=== PATIENT | female | born 1950 | race Caucasian/White ===

== ENCOUNTER 2023-07-22 09:52 | Emergency (ER) | payer MEDICARE, SELFPAY ==
[2023-07-22] VITALS (16 sets, daily range): BP systolic 83–117; BP diastolic 39–58; PULSE 66–77; RESP 12–32; TEMP 36.9; O2SAT 97–100; BMI 29.0
[2023-07-22 10:15] LABS: Add Manual Diff / Slide Review NO; Basophils Absolute Auto 100 /uL (0-100); Basophils Percent Auto 0.7 % (0-2); Eosinophils Absolute Auto 200 /uL (0-450); Eosinophils Percent Auto 1.6 % (2-4); Hematocrit 31.7 % (36-46); Hemoglobin 10.6 g/dL (12.0-16.0); Lymphocytes Absolute Auto 1100 /uL (1100-4500); Lymphocytes Percent Auto 9.8 % (25-40); Mean Corpuscular HGB Conc 33.5 % (30-36); Mean Corpuscular Hemoglobin 32.3 PG (26-34); Mean Corpuscular Volume 96.3 fL (80-100); Monocytes Absolute Auto 500 /uL (0-900); Monocytes Percent Auto 4.9 % (3-14); Neutrophils Absolute Auto 9100 /uL (1500-7000); Platelet Count 222 X10^3/uL (150-400); Red Blood Cell Count 3.29 X10^6/uL (4.0-5.2); Red Cell Distribution Width 13.2 % (11.6-14.8); White Blood Cell Count 10.9 X10^3/uL (4.5-11.0)
[2023-07-22] MEDS: SODIUM CHLORIDE 0.9% 1,000 ML 1000 ML IV ×2 (10:15→10:54)
--- NOTE | 2023-07-22 10:19 | PC.NURSE ---
Pt hypotensive 83/39. Placed pt in trendelenberg. BP now 91/47. Pt a&ox4
--- NOTE | 2023-07-22 10:20 | ED_ITS ---
HPI - Skin/Abscess/Foreign Bdy General Chief complaint: Skin/Abscess/Foreign Body Stated complaint: Rash in groin since ,worse,hypotension Time Seen by Provider: 07/22/23 09:54 Source: patient and EMS Mode of arrival: EMS History of Present Illness HPI narrative: 73-year-old female presents by EMS from nursing facility for rash. Patient has a rash on her body, starting in her groin and underneath her breasts that has gradually worsened. Patient is on daily fluconazole and terbinafine, however because she was not getting better facility called 911 for evaluation. Incidentally patient was noted to be hypotensive by EMS EN route, however she denied complaints. Related Data Allergies Allergy/AdvReac Type Severity Reaction Status Date / Time No Known Drug Allergies Allergy Verified 07/22/23 10:52 Review of Systems Review of Systems Narrative: Negative except as noted above Patient History Social History Smoking Status: Never smoker Smoking Status: Never smoker alcohol intake frequency: 0-2 drinks per day Substance Use Type: does not use Exam Initial Vital Signs Initial Vital Signs: Vital Signs Temperature 98.5 F 07/22/23 09:56 Pulse Rate 77 07/22/23 09:56 Respiratory Rate 28 H 07/22/23 09:56 Blood Pressure 94/51 L 07/22/23 09:56 Pulse Oximetry 99 07/22/23 09:56 Oxygen Delivery Method Room Air 07/22/23 09:56 Const: Awake, alert, no acute distress, nontoxic appearing Eyes: PERRL, EOMI, conjunctiva normal ENT: Atraumatic, dentition normal, mucous membranes moist Cardiac: regular rate, regular rhythm RESP: unlabored, clear bilaterally, no wheezing GI: Atraumatic, soft, nontender, nondistended, no rebound, no guarding MSK: Missing LUE above elbow Skin: extensive fungal-appearing rash under breasts, in groin, and on legs Neuro: AO x3, CN II-XII grossly intact, moves all extremities Psych: affect normal, mood normal, not suicidal, not homicidal Course Orders Ordered: ED Orders 07/22/23 10:10 CBC Auto Diff [Complete Blood Count AUTO DIFF] Stat CMP [Comprehensive Metabolic Panel] Stat CRP [C-Reactive Protein Quant] Stat Erythrocyte Sedimentation Rate Stat Lactate (Lactic Acid) Stat Procalcitonin Stat 07/22/23 10:11 EKG-12 Lead Stat 07/22/23 10:58 Blood Culture Stat 07/22/23 11:30 UA Complete [Urinalysis and Microscopic] Stat Discontinued Medications Sodium Chloride (Normal Saline 0.9%) 1,000 mls @ 1,000 mls/hr IV BOLUS ONE Stop: 07/22/23 11:10 Last Infusion: 07/22/23 10:53 Dose: Infused Documented By: Admin: 07/22/23 10:15 Dose: 1,000 mls/hr Documented By: BRAXTON Sodium Chloride (Normal Saline 0.9%) 1,000 mls @ 1,000 mls/hr IV BOLUS ONE Stop: 07/22/23 11:40 Last Infusion: 07/22/23 11:49 Dose: Infused Documented By: Admin: 07/22/23 10:54 Dose: 1,000 mls/hr Documented By: BRAXTON Oxycodone HCl (Oxycodone Ir 5 Mg Tablet) 5 mg PO NOW ONE Stop: 07/22/23 11:38 Last Admin: 07/22/23 11:49 Dose: 5 mg Documented By: BRAXTON Vital Signs Vital signs: Vital Signs - 8 hr 07/22/23 09:56 07/22/23 10:04 07/22/23 10:04 Temperature 98.5 F Pulse Rate 77 75 Respiratory Rate 28 H Blood Pressure 94/51 L 92/48 L Pulse Oximetry 99 99 Oxygen Delivery Method Room Air 07/22/23 10:15 07/22/23 10:17 07/22/23 10:17 Temperature Pulse Rate 74 71 Respiratory Rate 14 24 Blood Pressure 83/39 L Pulse Oximetry 99 98 Oxygen Delivery Method 07/22/23 10:19 07/22/23 10:19 07/22/23 10:30 Temperature Pulse Rate 69 Respiratory Rate 16 Blood Pressure 91/47 L 94/51 L Pulse Oximetry 100 Oxygen Delivery Method 07/22/23 10:30 07/22/23 10:45 07/22/23 10:45 Temperature Pulse Rate 68 69 Respiratory Rate 12 13 Blood Pressure 101/51 L Pulse Oximetry 99 99 Oxygen Delivery Method 07/22/23 11:00 07/22/23 11:00 07/22/23 11:15 Temperature Pulse Rate 66 67 Respiratory Rate 17 14 Blood Pressure 97/50 L Pulse Oximetry 98 97 Oxygen Delivery Method 07/22/23 11:15 07/22/23 11:30 07/22/23 11:30 Temperature Pulse Rate 77 Respiratory Rate 14 Blood Pressure 90/53 L 117/58 L Pulse Oximetry 98 Oxygen Delivery Method 07/22/23 11:45 07/22/23 11:45 07/22/23 12:00 Temperature Pulse Rate 66 77 Respiratory Rate 14 32 H Blood Pressure 96/50 L Pulse Oximetry 99 99 Oxygen Delivery Method 07/22/23 12:00 07/22/23 12:15 07/22/23 12:15 Temperature Pulse Rate 72 Respiratory Rate 13 Blood Pressure 102/54 L 104/58 L Pulse Oximetry 99 Oxygen Delivery Method 07/22/23 12:30 07/22/23 12:30 07/22/23 12:45 Temperature Pulse Rate 66 Respiratory Rate 12 Blood Pressure 101/54 L 99/51 L Pulse Oximetry 99 Oxygen Delivery Method 07/22/23 12:45 07/22/23 13:00 07/22/23 13:00 Temperature Pulse Rate 66 69 Respiratory Rate 13 Blood Pressure 116/57 L Pulse Oximetry 97 100 Oxygen Delivery Method MDM - Skin/Abscess/Foreign Bdy Lab Data 07/22/23 10:10 07/22/23 10:10 Labs: Lab Results 07/22/23 07/22/23 07/22/23 Range/Units 10:10 11:30 12:10 WBC 10.9 (4.5-11.0) X10^3/uL RBC 3.29 L (4.0-5.2) X10^6/uL Hgb 10.6 L (12.0-16.0) g/dL Hct 31.7 L (36-46) % MCV 96.3 (80-100) fL MCH 32.3 (26-34) PG MCHC 33.5 (30-36) % RDW 13.2 (11.6-14.8) % Plt Count 222 (150-400) X10^3/uL Neut % (Auto) 83.0 H (50-75) % Lymph % (Auto) 9.8 L (25-40) % [place] % (Auto) 4.9 (3-14) % Eos % (Auto) 1.6 L (2-4) % Baso % (Auto) 0.7 (0-2) % Neut # (Auto) 9100 H (1441-5858) /uL Lymph # (Auto) 1100 (1171-8394) /uL [place] # (Auto) 500 (0-900) /uL Eos # (Auto) 200 (0-450) /uL Baso # (Auto) 100 (0-100) /uL ESR 49 H (0-20) MM/HR Sodium 137 (137-145) mmol/L Potassium 4.8 (3.4-5.1) mmol/L Chloride 105 (98-107) mmol/L Carbon Dioxide 25 (22-32) mmol/L BUN 15 (7-17) mg/dL Creatinine 0.60 (0.52-1.04) mg/dL Estimated GFR > 60 (>60) mL/min BUN/Creatinine Ratio 25.0 H (6-22) Glucose 135 H (80-110) mg/dL Lactate 2.5 H 0.8 (0.7-2.1) mmol/L Calcium 9.5 (8.4-10.2) mg/dL Total Bilirubin 0.5 (0.2-1.3) mg/dL AST 26 (14-36) IU/L ALT 17 (<35) IU/L Alkaline Phosphatase 52 (38-126) U/L C-Reactive Protein 5.9 H (<1.0) mg/dL Total Protein 6.3 (6.3-8.2) g/dL Albumin 3.4 L (3.5-5.0) g/dL Globulin 2.9 (1.7-4.1) g/dL Albumin/Globulin Ratio 1.2 (1.0-2.8) Procalcitonin 0.09 (<0.5) ng/mL Urine Color Yellow Urine Appearance Sl cloudy Urine pH 6.5 (4.5-8.0) Ur Specific [place] <=1.005 (1.000-1.035) Urine Protein Negative (Negative) Urine Glucose (UA) Negative (Negative) g/dL Urine Ketones Negative (NEGATIVE) Urine Occult Blood 1+ H (Negative) Urine Nitrate Negative (Negative) Urine Bilirubin Negative (NEGATIVE) Urine Urobilinogen 0.2 (0.2) E.U./dL Ur Leukocyte Esterase 3+ H (NEGATIVE) Urine RBC None seen (0-5/HPF) Urine WBC 0-1/hpf (0-5/HPF) Ur Squamous Epith Cells 5-10 /hpf H (0-5/HPF) Urine Bacteria None seen (None) Ur Culture Indicated? Cult not indicated Treatment and disposition Social Determinants of Health that impact treatment or disposition: longterm resident MDM Narrative Medical decision making narrative: Patient presenting for fungal rash that does not appear to be improving. Incidentally found to be hypotensive by EMS, however patient is awake, alert, spending time on her iPad. She appears to be on appropriate therapy for antifungal regimens. Laboratory work is reviewed. Patient has elevated CRP, sedimentation rate. Initially elevated lactic acid, however repeat after IV fluids was within normal limits. Patient does not appear to have overlying cellulitis of her fungal rash. Per up-to-date therapy can be continued for several weeks before treatment considered failed. Patient has been on fluconazole less than 1 week. Recommended dermatology follow up and continued fluconazole treatment. Discharge Plan Departure Patient Disposition: Home Clinical Impression: Lisa infection Instructions: Yeast Infection-Skin Activity Restrictions/Additional Instructions: Continue fluconazole Referrals: Provider,Conversion [Non-Staff] - Stand Alone Forms: Patient Portal/API
[2023-07-22 10:34] LABS: Alanine Aminotransferase 17 IU/L (<35); Albumin 3.4 g/dL (3.5-5.0); Albumin Globulin Ratio 1.2 (1.0-2.8); Alkaline Phosphatase 52 U/L (38-126); Aspartate Aminotransferase 26 IU/L (14-36); Bilirubin Total 0.5 mg/dL (0.2-1.3); Blood Urea Nitrogen 15 mg/dL (7-17); C-Reactive Protein Quant 5.9 mg/dL (<1.0); Calcium 9.5 mg/dL (8.4-10.2); Carbon Dioxide 25 mmol/L (22-32); Chloride 105 mmol/L (98-107); Estimated Glomerular Filt Rate > 60 mL/min (>60); Globulin 2.9 g/dL (1.7-4.1); Glucose 135 mg/dL (80-110); HEMOLYSIS 22 (0-50); Potassium 4.8 mmol/L (3.4-5.1); Sodium 137 mmol/L (137-145); Total Protein 6.3 g/dL (6.3-8.2)
[2023-07-22 10:47] LABS: Erythrocyte Sedimentation Rate 49 MM/HR (0-20); Procalcitonin 0.09 ng/mL (<0.5)
[2023-07-22 10:51] LABS: Lactate (Lactic Acid) 2.5 mmol/L (0.7-2.1)
[2023-07-22] MEDS: OXYCODONE IR 5 MG TABLET PO (11:49)
--- NOTE | 2023-07-22 11:59 | PC.NURSE ---
Pt used bedpan with assistance. Urine sent to lab. Pt remains hypotensive. BP 96/50. Pt in trendelenberg position.
[2023-07-22 12:08] LABS: Bilirubin Urine UA NEGATIVE (NEGATIVE); Color Urine UA YELLOW; Glucose Urine UA NEGATIVE (Negative); Ketones Urine UA NEGATIVE (NEGATIVE); Leukocyte Esterase Urine UA 3+ (NEGATIVE); Nitrite Urine UA NEGATIVE (Negative); Occult Blood Urine UA 1+ (Negative); Protein Urine UA NEGATIVE (Negative); Specific Gravity Urine UA <=1.005 (1.000-1.035); Urobilinogen Urine UA 0.2 E.U./dL (0.2)
[2023-07-22 12:10] LABS: Appearance Urine UA SL CLOUDY; pH Urine UA 6.5 (4.5-8.0)
[2023-07-22 12:16] LABS: Bacteria Urine None Seen; Culture Indicated Urine Cult Not Indicated; RBC Urine None Seen (0-5/HPF); Squamous Epithelial Cell Urine 5-10 /HPF (0-5/HPF); WBC Urine 0-1/HPF (0-5/HPF)
[2023-07-22 12:25] LABS: Reflexed Lactate in 2 Hours Y
[2023-07-22 12:34] LABS: Lactate 2HR (Lactic Acid Rflx) 0.8 mmol/L (0.7-2.1)
--- NOTE | 2023-07-22 12:49 | PC.NURSE ---
Called to speak with Ronaldo COLEMAN. Rn reports that pt started taking voltaren gel, hydroxyzine, miralax and fluconizole on 07/15. Sx and rash began around that same time and presented as a yeast infection under breasts, pannus and groin. Ronaldo COLEMAN also reports that pt is not hypotensive and her baseline systolic pressure is between 104-110. Pt is not currently taking antibiotics.
== END 2023-07-22 13:52 | disposition home or self-care (01) ==
PROVIDERS: Emergency Provider Emergency Medicine; PCP Physician Assistant Medical
DX: B37.2 Candidiasis of skin and nail (principal)
CPT/HCPCS: 36415; 80053; 81001; 83605; 84145; 85025; 85651; 86140; 87040; 93005; 96360; 96361; 99284

== ENCOUNTER → 2023-07-28 15:55 | Outpatient (CLI) | payer MEDICARE, SELFPAY ==
[2023-07-28 16:29] LABS: Add Manual Diff / Slide Review NO; Basophils Absolute Auto 0 /uL (0-100); Basophils Percent Auto 0.3 % (0-2); Eosinophils Absolute Auto 400 /uL (0-450); Eosinophils Percent Auto 4.3 % (2-4); Hematocrit 32.8 % (36-46); Lymphocytes Absolute Auto 2600 /uL (1100-4500); Lymphocytes Percent Auto 28.3 % (25-40); Mean Corpuscular HGB Conc 33.6 % (30-36); Mean Corpuscular Hemoglobin 31.9 PG (26-34); Mean Corpuscular Volume 94.9 fL (80-100); Monocytes Absolute Auto 600 /uL (0-900); Monocytes Percent Auto 6.9 % (3-14); Neutrophils Absolute Auto 5500 /uL (1500-7000); Neutrophils Percent Auto 60.2 % (50-75); Platelet Count 281 X10^3/uL (150-400); Red Blood Cell Count 3.45 X10^6/uL (4.0-5.2); Red Cell Distribution Width 13.4 % (11.6-14.8); White Blood Cell Count 9.1 X10^3/uL (4.5-11.0)
[2023-07-28 16:43] LABS: Alanine Aminotransferase 15 IU/L (<35); Albumin 3.6 g/dL (3.5-5.0); Albumin Globulin Ratio 1.2 (1.0-2.8); Alkaline Phosphatase 57 U/L (38-126); Aspartate Aminotransferase 26 IU/L (14-36); Bilirubin Total 0.4 mg/dL (0.2-1.3); Blood Urea Nitrogen 17 mg/dL (7-17); Calcium 9.5 mg/dL (8.4-10.2); Carbon Dioxide 25 mmol/L (22-32); Chloride 106 mmol/L (98-107); Estimated Glomerular Filt Rate > 60 mL/min (>60); Globulin 3.1 g/dL (1.7-4.1); Glucose 105 mg/dL (80-110); HEMOLYSIS < 15 (0-50); Iron 64 ug/dL (37-170); Potassium 4.3 mmol/L (3.4-5.1); Sodium 138 mmol/L (137-145); Total Protein 6.7 g/dL (6.3-8.2)
[2023-07-28 16:53] LABS: Percent Iron Saturation 24 % (15-50); Total Iron Binding Capacity 269 ug/dL (265-497); Transferrin 240 mg/dL (206-381)
== END ==
PROVIDERS: PCP Physician Assistant Medical; Referring Provider Registered Nurse; Visit Provider Registered Nurse
DX: R79.9 Abnormal finding of blood chemistry, unspecified (principal); E61.1 Iron deficiency
CPT/HCPCS: 36415; 80053; 83540; 83550; 85025; 87040

== ENCOUNTER → 2023-08-01 21:28 | Outpatient (ROUT) | payer MEDICARE, SELFPAY ==
[2023-08-01 21:40] LABS: Appearance Urine UA CLEAR; Bilirubin Urine UA NEGATIVE (NEGATIVE); Color Urine UA YELLOW; Glucose Urine UA NEGATIVE (Negative); Ketones Urine UA NEGATIVE (NEGATIVE); Leukocyte Esterase Urine UA 2+ (NEGATIVE); Nitrite Urine UA NEGATIVE (Negative); Occult Blood Urine UA NEGATIVE (Negative); Protein Urine UA NEGATIVE (Negative); Urobilinogen Urine UA 0.2 E.U./dL (0.2)
[2023-08-01 21:47] LABS: pH Urine UA 7.5 (4.5-8.0)
[2023-08-01 21:48] LABS: Bacteria Urine Few (2-10); RBC Urine 0-1/HPF (0-5/HPF); Squamous Epithelial Cell Urine 0-1 /HPF (0-5/HPF); WBC Urine 1-5/HPF (0-5/HPF)
== END ==
PROVIDERS: PCP Physician Assistant Medical; Visit Provider Registered Nurse
DX: R39.9 Unspecified symptoms and signs involving the genitourinary system (principal)
CPT/HCPCS: 81001; 87086

== ENCOUNTER → 2023-09-12 16:41 | Outpatient (CLI) | payer MEDICARE, OTHER, SELFPAY ==
--- NOTE | 2023-09-12 16:46 | DI.RAD.S_ITS ---
PROCEDURE: XR KNEE RT 3V INDICATIONS: ARTHIRITIS TECHNIQUE: 3 views of the knee were acquired. COMPARISON: None. FINDINGS: Bones: No fractures or dislocations. Moderate to severe lateral and mild medial and patellofemoral compartment joint space narrowing and juxta-articular osteophytosis. No suspicious bony lesions. Soft tissues: Small joint effusion. No suspicious soft tissue calcifications. IMPRESSION: 1. No acute bony abnormality or significant effusion. 2. 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 Dictated by: Chichi Dallas M.D. on 09/15/2023 at 18:23 Approved by: Chichi Dallas M.D. on 09/15/2023 at 18:23
--- NOTE | 2023-09-12 16:46 | DI.RAD.S_ITS ---
PROCEDURE: XR KNEE LT 3V INDICATIONS: ARTHRITIS TECHNIQUE: 3 views of the knee were acquired. COMPARISON: None. FINDINGS: Bones: No fractures or dislocations. Moderate medial and mild lateral and patellofemoral compartment joint space narrowing and juxta-articular osteophytosis. No suspicious bony lesions. Soft tissues: No joint effusion. No suspicious soft tissue calcifications. IMPRESSION: 1. No acute bony abnormality or significant effusion. 2. [id number] tricompartmental osteoarthritis, worse in the lateral compartment. Dictated by: Chichi Dallas M.D. on 09/15/2023 at 18:11 Approved by: Chichi Dallas M.D. on 09/15/2023 at 18:22
== END ==
PROVIDERS: PCP Physician Assistant Medical; Visit Provider Registered Nurse
DX: M17.0 Bilateral primary osteoarthritis of knee (principal)
CPT/HCPCS: 73562

== ENCOUNTER → 2024-02-11 06:26 | Outpatient (ROUT) | payer MEDICARE, OTHER, SELFPAY ==
[2024-02-11 07:05] LABS: Add Manual Diff / Slide Review NO; Basophils Absolute Auto 100 /uL (0-100); Eosinophils Absolute Auto 100 /uL (0-450); Eosinophils Percent Auto 1.7 % (2-4); Hematocrit 33.7 % (36-46); Hemoglobin 11.2 g/dL (12.0-16.0); Lymphocytes Absolute Auto 1900 /uL (1100-4500); Lymphocytes Percent Auto 23.4 % (25-40); Mean Corpuscular HGB Conc 33.2 % (30-36); Mean Corpuscular Hemoglobin 31.2 PG (26-34); Mean Corpuscular Volume 93.8 fL (80-100); Monocytes Absolute Auto 500 /uL (0-900); Monocytes Percent Auto 6.2 % (3-14); Neutrophils Absolute Auto 5400 /uL (1500-7000); Neutrophils Percent Auto 67.7 % (50-75); Platelet Count 197 X10^3/uL (150-400); Red Blood Cell Count 3.59 X10^6/uL (4.0-5.2); White Blood Cell Count 7.9 X10^3/uL (4.5-11.0)
[2024-02-11 07:47] LABS: Alanine Aminotransferase 12 IU/L (<35); Albumin Globulin Ratio 1.5 (1.0-2.8); Alkaline Phosphatase 49 U/L (38-126); Aspartate Aminotransferase 20 IU/L (14-36); BUN Creatinine Ratio 28.1 (6-22); Bilirubin Total 0.5 mg/dL (0.2-1.3); Blood Urea Nitrogen 16 mg/dL (7-17); Calcium 9.3 mg/dL (8.4-10.2); Carbon Dioxide 27 mmol/L (22-32); Chloride 110 mmol/L (98-107); Estimated Glomerular Filt Rate > 60 mL/min (>60); Globulin 2.6 g/dL (1.7-4.1); Glucose 91 mg/dL (80-110); HEMOLYSIS < 15 (0-50); Potassium 4.2 mmol/L (3.4-5.1); Sodium 140 mmol/L (137-145); Total Protein 6.6 g/dL (6.3-8.2)
[2024-02-11 08:18] LABS: Thyroid Stimulating Hormone 2.55 uIU/mL (0.47-4.68)
== END ==
PROVIDERS: Visit Provider Nurse Practitioner Family
DX: R79.89 Other specified abnormal findings of blood chemistry (principal)
CPT/HCPCS: 36415; 80053; 83036; 84443; 85025

== ENCOUNTER → 2024-11-03 06:22 | Outpatient (ROUT) | payer MEDICARE, OTHER, SELFPAY ==
[2024-11-03 07:42] LABS: Hematocrit 38.4 % (36-46); Hemoglobin 12.9 g/dL (12.0-16.0); Mean Corpuscular HGB Conc 33.5 % (30-36); Mean Corpuscular Hemoglobin 31.6 PG (26-34); Mean Corpuscular Volume 94.2 fL (80-100); Platelet Count 262 X10^3/uL (150-400); Red Blood Cell Count 4.08 X10^6/uL (4.0-5.2); Red Cell Distribution Width 12.8 % (11.6-14.8); White Blood Cell Count 9.9 X10^3/uL (4.5-11.0)
[2024-11-03 07:58] LABS: Hemoglobin A1C% w Est Avg Glu 4.8 % (4.0-6.0)
[2024-11-03 08:00] LABS: BUN Creatinine Ratio 22.2 (6-22); Blood Urea Nitrogen 14 mg/dL (7-17); Carbon Dioxide 23 mmol/L (22-32); Chloride 107 mmol/L (98-107); Estimated Glomerular Filt Rate > 60 mL/min (>60); Glucose 103 mg/dL (80-110); HEMOLYSIS < 15 (0-50); Potassium 4.4 mmol/L (3.4-5.1); Sodium 142 mmol/L (137-145)
[2024-11-03 08:35] LABS: Thyroid Stimulating Hormone 2.42 uIU/mL (0.47-4.68)
== END ==
PROVIDERS: Visit Provider Registered Nurse
DX: R63.5 Abnormal weight gain (principal)
CPT/HCPCS: 36415; 80048; 83036; 84443; 85027

== ENCOUNTER → 2025-08-10 06:23 | Outpatient (ROUT) | payer MEDICARE, OTHER, SELFPAY ==
[2025-08-10 09:38] LABS: Hematocrit 39.4 % (36-46); Hemoglobin 13.1 g/dL (12.0-16.0); Mean Corpuscular HGB Conc 33.3 % (30-36); Mean Corpuscular Hemoglobin 30.9 PG (26-34); Mean Corpuscular Volume 93.0 fL (80-100); Platelet Count 252 X10^3/uL (150-400)
[2025-08-10 09:54] LABS: Blood Urea Nitrogen 14 mg/dL (7-17); Calcium 9.7 mg/dL (8.4-10.2); Carbon Dioxide 26 mmol/L (22-32); Chloride 104 mmol/L (98-107); Cholesterol 201 mg/dL (140-199); Estimated Glomerular Filt Rate > 60 mL/min (>60); Glucose 137 mg/dL (70-99); HDL Cholesterol 48 mg/dL (40-60); HEMOLYSIS < 15 (0-50); Potassium 4.1 mmol/L (3.4-5.1); Sodium 141 mmol/L (137-145); Triglycerides 260 mg/dL (35-150)
== END ==
LOC: LAB 06:25
PROVIDERS: Visit Provider Registered Nurse
DX: Z13.220 Encounter for screening for lipoid disorders (principal); I10 Essential (primary) hypertension
CPT/HCPCS: 36415; 80048; 80061; 85027